=== PATIENT | female | born 1935 | race Caucasian/White ===

== ENCOUNTER 2016-10-22 14:04 | Emergency (ER) | payer MEDICARE, BC ==
--- NOTE | ~2016-10-22 | CR94 ---
[facility] A Service of [facility] & [facility] RADIOLOGY TEXT RESULTS PATIENT: VALENTINA HORVATH LOCATION: [facility] : 33 UNIT #: [id number] AGE: [address]: Mary Beth Dietrich SEX: F ORDER DR: [id number] [facility]. [place], [place] [address] [id number] MR#: [id number] #: [id number] NAME: VALENTINA HORVATH. : 1935 SEX: F STUDY DATE/TIME: 10/22/2016 14:36 UNIT: [facility] ROOM: STUDY DESCRIPTION: CR Elbow Min 3 Views Rt Attending Physician: Mary Beth Dietrich P.A.-C. Ordering Physician: Mary Beth Dietrich P.A.-C. Primary Care Physician: Gabriel Ronquillo M.D. MEDICAL IMAGING REPORT This report is preliminary unless electronic signature is present EXAM Right elbow 10/22/2016. HISTORY 81-year-old female in the ED complaining of new onset right elbow pain, redness and swelling beginning earlier today. No reported acute injury. TECHNIQUE 3-view right elbow series. FINDINGS The examination shows marked soft tissue swelling in the region of the olecranon bursa posterior to the elbow. This was not present on the previous study of 09/03/2011. Correlate clinically for additional evidence of potential olecranon bursitis. No visible joint effusion. No fracture or other osseous abnormality. No visible radiopaque soft tissue foreign body. IMPRESSION Marked soft tissue swelling in the region of the olecranon bursa. Correlate for clinical evidence of olecranon bursitis. Dictated by... Dequan Ballard M.D. THIS IS AN ELECTRONICALLY VERIFIED REPORT Dequan Ballard M.D. at 10/22/2016 8:51 PM Laya TD: 10/22/2016 17:48 JOB #: [id number] [facility] A Service of [facility] & [facility] RADIOLOGY TEXT RESULTS PATIENT: VALENTINA HORVATH LOCATION: [facility] : 33 UNIT #: [id number] AGE: [address]: Mary Beth Dietrich SEX: F ORDER DR: MEDICAL IMAGING REPORT Page 1 of 1 COPY
[~2016-10-22 14:04] MED LIST: LISINOPRIL-HCTZ1 T14 PO; MEVACOR PO; NATURAL VITA200 UNIT PO; ULTRAM PO; VITAMIN C250 MG PO; VITAMIN D400 UNI2 PO
[2016-10-22 14:44] LABS: BASOPHIL% 0.5 % (0-2.5); EOSINOPHIL% 0.5 % (0.0-7.0); HEMATOCRIT 36.1 % (35.0-45.0); HEMOGLOBIN 11.7 gm/dL (12.0-16.0); LYMPHOCYTE# 1.6 X10e3 (1.0-3.5); LYMPHOCYTE% 19.5 % (17.0-45.0); MEAN CELL VOLUME 99.3 FL (83-96); MEAN CORPUSCULAR HEMOGLOBIN 32.3 PG (28-34); MEAN CORPUSCULAR HGB CONC 32.6 g/dL (30-36); MEAN PLATELET VOLUME 6.4 FL (6.5-11.5); MONOCYTE# 0.6 X10e3 (0-1.0); MONOCYTE% 7.7 % (3.0-12.0); NEUTROPHIL# 5.7 X10e3 (1.5-7.1); NEUTROPHIL% 71.8 % (40-75); PLATELET COUNT 312 X10e3 (140-420); RED BLOOD COUNT 3.63 X10e (3.90-5.30)
[2016-10-22 14:47] LABS: DIFF IND NO
[2016-10-22 15:11] LABS: CALCIUM SERUM 9.3 mg/dL (8.4-10.2); GLOM FILT RATE Estimated 52.4 mL/min (>60); POTASSIUM 4.2 mmol/L (3.5-5.1)
== END 2016-10-22 16:15 | disposition home or self-care (01) ==
LOC: CFTX 14:04 → CED 14:04 → CFTX 14:27
PROVIDERS: Physician Assistant
DX: M70.21 Olecranon bursitis, right elbow (principal); I10 Essential (primary) hypertension; E78.5 Hyperlipidemia, unspecified; Z90.49 Acquired absence of other specified parts of digestive tract; Z87.891 Personal history of nicotine dependence
CPT/HCPCS: 36415; 73080; 80048; 85025; 85652; 86140; 99283